=== PATIENT | male | born 1960 | race Two or more races ===

== ENCOUNTER → 2018-08-09 | Outpatient (CLI) | payer BC ==
[~2018-08-09] MED LIST: FLOMAX0.4 MG PO; RAPAFLO8 MG PO
--- NOTE | 2018-08-10 15:03 | Diagnostic Imaging Report ---
EXAM: Thyroid Ultrasound INDICATION: ^SCREENING FOR THYROID DISORDER COMPARISON: Thyroid ultrasound 02/11/2018 performed at outside institution TECHNIQUE: Transverse and sagittal images were obtained of the thyroid gland. FINDINGS: Thyroid gland: Size: Right lobe: 4.5 x 1.9 x 1.1 cm, Normal in size Left lobe: 4.1 x 1.5 x 1.5 cm, Normal in size Isthmus: 0.4 cm, Normal in size Appearance: Slightly heterogeneous echotexture without increased vascularity Masses/Nodules: Right lobe: 0.5 x 0.4 x 0.4 cm solid (2 pts) nodule in the superior pole with smooth margin (0 pts), zjczo-satf-judt (0 pts), hypoechoic (2 pts), and no calcifications (0 pts). Previously 0.6 x 0.4 x 0.4 cm. TR4a (<1.0 cm): No follow-up. Isthmus: 1.1 x 0.5 x 0.8 cm solid (2 pts) nodule in the right aspect of the isthmus with smooth margin (0 pts), fnrna-epcn-fvmd (0 pts), hypoechoic (2 pts), and no calcifications (0 pts). Previously 0.9 and 0.5 x 0.9 cm. TR4b (1.0-1.5 cm), Moderately Suspicious: Follow at 1, 2, 3, 5 years. 0.9 and 0.6 x 0.9 cm solid (2 pts) nodule in the left aspect of the isthmus with smooth margin (0 pts), [id number]-oniu-qdxp (0 pts), hypoechoic (2 pts), and no calcifications (0 pts). Previously 1.4 x 0.6 x 1.3 cm. TR4a (<1.0 cm): No follow-up. Left lobe: No nodules. Lymph nodes: No lymphadenopathy. Parathyroid: No focal parathyroid masses. IMPRESSION: 1. Normal bilateral thyroid lobe size. Stable mildly heterogeneous echogenicity. Normal vascularity. 2. Relatively stable solid nodule in the right aspect of the isthmus TR4b (1.0-1.5 cm), Moderately Suspicious: Follow at 1, 2, 3, 5 years. 3. Other nodules in the right lobe and right aspect of the isthmus require no follow-up. TI-RADS Lexicon: TR1, Benign: No FNA TR2, Not Suspicious: No FNA. TR3a (<1.5 cm): No follow-up. TR3b (1.5-2.5 cm), Mildly Suspicious: Follow at 1, 3, 5 years. TR3c (>2.5 cm), Mildly Suspicious: FNA. TR4a (<1.0 cm): No follow-up. TR4b (1.0-1.5 cm), Moderately Suspicious: Follow at 1, 2, 3, 5 years. TR4c (>1.5 cm), Moderately Suspicious: FNA. TR5a (<0.5 cm): No follow-up. TR5b (0.5-1.0 cm), Highly Suspicious: Follow at 1, 2, 3, 4, 5 years. TR5c (>1.0 cm), Highly Suspicious: FNA. *Rebiopsy if new suspicious features *No recommendation at this time for significant interval growth. Nodule Characteristics: * Benign features: cystic, hyperechoic, comet-tail artifact, complete halo * Minor suspicious features: solid, hypoechoic, other calcifications * Major suspicious features: microcalcifications, marked hypoechoic (less than strap muscle), suspicious lymph nodes, taller than wide, lobulated or ill-defined margins. Literature: ACR Thyroid Imaging, Reporting and Data System (TI-RADS): White Paper of the ACR TI-RADS Committee. J Am Maureen Radiol 2017. Signed by: Dr. Braulio Murillo M.D. on 08/10/2018 3:00 PM
== END ==
LOC: US 13:54
PROVIDERS: ATTEND Internal Medicine
DX: Z13.29 Encounter for screening for other suspected endocrine disorder (principal)
CPT/HCPCS: 76536

== ENCOUNTER → 2020-02-12 | Outpatient (CLI) | payer BC ==
--- NOTE | 2020-02-12 18:02 | Diagnostic Imaging Report ---
MRI SPINE CERVICAL WO HISTORY: Thoracic radiculopathy; left shoulder pain COMPARISON: Report from cervical spine CT dated 08/27/2016 TECHNIQUE: Sagittal T1, sagittal T2, sagittal inversion recovery, axial T2 and axial T1 weighted MR images of the cervical spine were obtained without intravenous contrast. DISCUSSION: Alignment: Normal lordosis. No scoliosis. Vertebrae: Small nodular STIR hyperintense lesion in the posterior T1 vertebral body may be an atypical hemangioma. Otherwise, no definite evidence for fractures, infection, or neoplasm. Cervicomedullary junction: No abnormalities. Spinal cord: Normal in signal and morphology from the foramen magnum through T4. Soft tissues: No signal abnormalities. Mild multilevel disc degeneration is most prominent at C6-C7. C2-C3: Patent canal and foramina. C3-C4: Mild canal stenosis due to posterior disc osteophyte complex and ligamentum flavum thickening. Mild right and mild to moderate left foraminal stenoses due to uncovertebral and facet arthrosis. C4-C5: Mild right foraminal stenosis due to uncovertebral and facet arthrosis. No significant canal or left foraminal stenosis. C5-C6: Patent canal and foramina. C6-C7: Mild to moderate left foraminal stenosis due to uncovertebral and facet arthrosis. No significant canal or right foraminal stenosis. C7-T1: Patent canal and foramina. IMPRESSION: 1. Mild multilevel disc degeneration, most prominent at C6-C7. 2. Mild degenerative canal stenosis at C3-C4. 3. Mild to moderate left C3-C4 and left C6-C7 degenerative foraminal stenoses. 4. Small nodular STIR hyperintense lesion in the posterior T1 vertebral body may be an atypical hemangioma. Signed by: Dr. Peter Arita M.D. on 02/12/2020 5:59 PM
== END ==
LOC: MRI 14:01
PROVIDERS: ATTEND Internal Medicine
DX: M54.14 Radiculopathy, thoracic region (principal); M51.84 Other intervertebral disc disorders, thoracic region; M25.512 Pain in left shoulder; M47.892 Other spondylosis, cervical region; M48.02 Spinal stenosis, cervical region
CPT/HCPCS: 72141

== ENCOUNTER → 2020-02-13 | Outpatient (CLI) | payer BC ==
--- NOTE | 2020-02-13 15:26 | Diagnostic Imaging Report ---
MRI SPINE THORACIC WO HISTORY: Thoracic radiculopathy COMPARISON: MRI of the cervical spine 02/12/2020 TECHNIQUE: Sagittal T1, sagittal T2, sagittal STIR, coronal T2, and axial T2 weighted MR images of the thoracic spine were obtained. DISCUSSION: Thoracic kyphosis is preserved. There is no significant scoliosis or subluxation. Small nodular T1 hyperintense lesions in the T7 and T11 vertebral bodies are benign hemangiomas. Similar small nodular T2/STIR hyperintense lesions in the T1, T8, and T9 vertebral bodies may be atypical hemangiomas. No vertebral compression deformities are seen. The thoracic cord is normal in signal and morphology. A few scattered small bilateral perineural cysts are present. Otherwise, the paravertebral and paraspinal soft tissues are unremarkable. Minimal thoracic disc degeneration is present. Minimal canal stenosis at T7-T8 is due to small left central disc protrusion that indents the left ventral thecal sac (and mildly deforms the left ventral cord). No significant canal or foraminal stenosis. IMPRESSION: 1. Minimal thoracic disc degeneration without significant canal or foraminal stenosis. 2. No cord compression or signal abnormalities. Signed by: Dr. Peter Arita M.D. on 02/13/2020 3:23 PM
== END ==
LOC: MRI 13:40
PROVIDERS: ATTEND Internal Medicine
DX: M54.14 Radiculopathy, thoracic region (principal); M51.26 Other intervertebral disc displacement, lumbar region
CPT/HCPCS: 72146

== ENCOUNTER → 2020-02-28 | Outpatient (CLI) | payer BC ==
--- NOTE | 2020-02-29 09:20 | Diagnostic Imaging Report ---
EXAM: Thyroid Ultrasound INDICATION: ^SCREENING FOR THYROID DISORDER COMPARISON: Thyroid ultrasound 08/06/2018 TECHNIQUE: Transverse and sagittal images were obtained of the thyroid gland. FINDINGS: Thyroid gland: Size: Right lobe: 4.5 x 2.1 x 1.6 cm, Normal in size Left lobe: 4.4 x 1.9 x 1.6 cm, Normal in size Isthmus: 0.5 cm, Normal in size Appearance: Slightly heterogeneous echotexture without increased vascularity Masses/Nodules: Right lobe: 0.5 x 0.4 x 0.5 cm solid (2 pts) nodule in the superior pole with smooth margin (0 pts), tgfas-dnrj-tqqm (0 pts), hypoechoic (2 pts), and no calcifications (0 pts). Previously 0.5 x 0.4 x 0.4 cm. TR4a (<1.0 cm): No follow-up. Isthmus: 0.9 x 0.6 x 1.0 cm solid (2 pts) nodule in the right aspect of the isthmus with smooth margin (0 pts), yhuxy-nnix-yqdy (0 pts), hypoechoic (2 pts), and no calcifications (0 pts). Previously 1.1 x 0.5 x 0.8 cm. TR4b 1.2 x 0.8 x 0.8 cm solid (2 pts) nodule in the left aspect of the isthmus with smooth margin (0 pts), [id number]-vvlb-jtyf (0 pts), hypoechoic (2 pts), and no calcifications (0 pts). Previously 0.9 x 0.6 x 0.9 cm. TR4a Left lobe: No nodules. Lymph nodes: No lymphadenopathy. Parathyroid: No focal parathyroid masses. IMPRESSION: No significant interval change in right thyroid and isthmus nodules. Continue follow-up as per ACR guidelines below. TI-RADS Lexicon: TR1, Benign: No FNA TR2, Not Suspicious: No FNA. TR3a (<1.5 cm): No follow-up. TR3b (1.5-2.5 cm), Mildly Suspicious: Follow at 1, 3, 5 years. TR3c (>2.5 cm), Mildly Suspicious: FNA. TR4a (<1.0 cm): No follow-up. TR4b (1.0-1.5 cm), Moderately Suspicious: Follow at 1, 2, 3, 5 years. TR4c (>1.5 cm), Moderately Suspicious: FNA. TR5a (<0.5 cm): No follow-up. TR5b (0.5-1.0 cm), Highly Suspicious: Follow at 1, 2, 3, 4, 5 years. TR5c (>1.0 cm), Highly Suspicious: FNA. *Rebiopsy if new suspicious features *No recommendation at this time for significant interval growth. Nodule Characteristics: * Benign features: cystic, hyperechoic, comet-tail artifact, complete halo * Minor suspicious features: solid, hypoechoic, other calcifications * Major suspicious features: microcalcifications, marked hypoechoic (less than strap muscle), suspicious lymph nodes, taller than wide, lobulated or ill-defined margins. Literature: ACR Thyroid Imaging, Reporting and Data System (TI-RADS): White Paper of the ACR TI-RADS Committee. J Am Maureen Radiol 2017. Signed by: Marlon Chase MD on 02/29/2020 9:16 AM
== END ==
LOC: US 16:34
PROVIDERS: ATTEND Internal Medicine
DX: Z13.29 Encounter for screening for other suspected endocrine disorder (principal)
CPT/HCPCS: 76536

== ENCOUNTER → 2021-03-10 | Outpatient (CLI) | payer BC | LOC: US 07:45 | PROVIDERS: ATTEND Internal Medicine Gastroenterology | DX: E07.9 Disorder of thyroid, unspecified (principal) | CPT/HCPCS: 76536 ==

== ENCOUNTER → 2022-02-13 | Day surgery (SDC) | payer BC ==
[~2022-02-13] MED LIST changes: +DEXILANT60 MG PO; +FENTANYL CITRATE/PF 100MCG/2 ML INJ ONE; +FISH OIL 1,0001 EAC2 PO; +GLUCAGON FOR INJ 1 MG VIAL ONE; +HYOSCYAMINE SULFATE 0.5 MG/ML INJ ONE; +MIDAZOLAM HCL 2 MG/2 ML VIAL ONE; +PROPOFOL IV EMULSION 10 MG/ML 20 ML VIAL ONE; +RAPAFLO4 MG PO; +VITAMIN B-121000 MCG PO; +VITAMIN C1000 MG PO; +VITAMIN D PO
[2022-02-13 09:35] VITALS: BP 110/74
== END | disposition home or self-care (01) ==
LOC: OR 06:19 → EDBD 07:30
PROVIDERS: ATTEND Internal Medicine Gastroenterology
DX: K29.70 Gastritis, unspecified, without bleeding (principal); D12.4 Benign neoplasm of descending colon; K31.7 Polyp of stomach and duodenum; K44.9 Diaphragmatic hernia without obstruction or gangrene; K20.90 Esophagitis, unspecified without bleeding; K22.89 Other specified disease of esophagus; K57.30 Diverticulosis of large intestine without perforation or abscess without bleeding; K64.8 Other hemorrhoids; K21.9 Gastro-esophageal reflux disease without esophagitis; N20.0 Calculus of kidney; Z79.899 Other long term (current) drug therapy
CPT/HCPCS: 43239; 45385; J1610; J1980; J2250; J2704; J3010; 45378

== ENCOUNTER → 2022-12-15 | Outpatient (CLI) | payer BC ==
[~2022-12-15] MED LIST changes: -FENTANYL CITRATE/PF 100MCG/2 ML INJ ONE; -GLUCAGON FOR INJ 1 MG VIAL ONE; -HYOSCYAMINE SULFATE 0.5 MG/ML INJ ONE; -MIDAZOLAM HCL 2 MG/2 ML VIAL ONE; -PROPOFOL IV EMULSION 10 MG/ML 20 ML VIAL ONE
== END ==
LOC: US 08:24
DX: E04.2 Nontoxic multinodular goiter (principal)
CPT/HCPCS: 76536

== ENCOUNTER 2023-08-09 07:00 | Outpatient (RCR) | payer BC ==
[~2023-08-09 07:00] MED LIST changes: +SYNTHROID75 MCG PO
== END 2023-08-11 ==
LOC: PT 07:00
PROVIDERS: ATTEND Neurological Surgery
DX: M50.01 Cervical disc disorder with myelopathy, high cervical region (principal); M62.81 Muscle weakness (generalized)

== ENCOUNTER → 2024-04-25 | Outpatient (REF) | payer BC | LOC: US 08:00 | PROVIDERS: ATTEND Nurse Practitioner Family | DX: E07.9 Disorder of thyroid, unspecified (principal) | CPT/HCPCS: 76536 ==

== ENCOUNTER → 2024-12-25 | Outpatient (REF) | payer BC | LOC: US 07:10 | PROVIDERS: ATTEND Nurse Practitioner Family | DX: E07.9 Disorder of thyroid, unspecified (principal) | CPT/HCPCS: 76536 ==

== ENCOUNTER → 2025-04-09 | Outpatient (REF) | payer BC | LOC: US 07:52 | PROVIDERS: ATTEND Nurse Practitioner Family | DX: E07.9 Disorder of thyroid, unspecified (principal) | CPT/HCPCS: 76536 ==